=== PATIENT | female | born 1945 | race Caucasian/White ===

== ENCOUNTER 2019-06-26 07:40 | Emergency (ER) | payer OTHER ==
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
== END 2019-06-26 09:54 | disposition home or self-care (01) ==
LOC: ER 07:40
DX: S39.012A Strain of muscle, fascia and tendon of lower back, initial encounter (principal); V48.5XXA Car driver injured in noncollision transport accident in traffic accident, initial encounter; I10 Essential (primary) hypertension; E11.9 Type 2 diabetes mellitus without complications
CPT/HCPCS: 72100; 72170; 99285; G0390